=== PATIENT | male | born 1965 | race Caucasian/White ===

== ENCOUNTER 2017-02-04 09:24 | Day surgery (SDC) | payer OTHER ==
--- NOTE | 2017-01-29 16:40 | HISTORY AND PHYSICAL E ---
History and Physical NAME: SAJAN BANKS : 1965 AGE: 51Y ADMITTED: 02/04/2017 ROOM: CHIEF COMPLAINT: Patient for colonoscopy. HISTORY: His previous colonoscopy showed polyps and diverticulosis. The patient does have a history of polyps and diverticulosis. The patient did have a colonoscopy, 05/2016. He is referred to us by the [place] with hemorrhoids, bleeding at times. The patient takes heart medication and blood pressure medications. PAST SURGICAL HISTORY: Right inguinal hernia. MEDICATIONS: 1. He takes Lisinopril. 2. Tylenol. ALLERGIES: No known allergies. SOCIAL HISTORY: He is single, does not smoke, does not drink. FAMILY HISTORY: His sister has MS. Father , brain tumor. His mom of old age. REVIEW OF SYSTEMS: CARDIAC: Hypertension. ENDOCRINE: Negative. GASTROINTESTINAL: History of polyps and diverticulosis. HEAD, EYES, EARS, NOSE, THROAT: Hearing loss and uses eye glasses. ONCOLOGIC/HEMATOLOGIC: History of colon polyps. NEUROLOGIC: Negative. PHYSICAL EXAMINATION: VITAL SIGNS: Blood pressure 130/70, pulse 80, respirations 18, temp is 98. HEAD, EYES, EARS, NOSE, THROAT: Normal. NECK: Supple. CARDIOVASCULAR: Normal. LUNGS: Clear. ABDOMEN: Soft. NEUROLOGIC: Exam negative. PLAN: Colonoscopy. Admit 02/04. DICTATING PHYSICIAN: MARKUS ARREDONDO M.D. [id number] [id number] PHY#: [id number] ID: [id number] JOB#: [id number] ACCT: [id number] cc:, [facility] MARKUS ARREDONDO M.D. >
--- NOTE | 2017-01-29 16:41 | HISTORY AND PHYSICAL E ---
History and Physical NAME: SAJAN BANKS : 1965 AGE: 51Y ADMITTED: 02/04/2017 ROOM: HISTORY: Patient admitted for colonoscopy. Patient does have history of polyps. Patient referred to us by the [place]. SOCIAL HISTORY: Does not smoke. Does not drink. Single. SURGERIES: Right inguinal hernia. REVIEW OF SYSTEMS: CARDIAC: Hypertension. HEENT: Eyeglasses. ENDOCRINE: Negative. GASTROINTESTINAL: Colon screening. ONCOLOGY/HEMATOLOGY: Negative. FAMILY HISTORY: MS sister. Father had brain tumor. Mom of old age. PHYSICAL EXAMINATION: VITAL SIGNS: Blood pressure 130/70, pulse 80, respirations 20, temp is 98. HEENT: Normal. NECK: Supple. LUNGS: Clear. ABDOMEN: Soft. NEUROLOGIC: Negative. CONCLUSION: Colon screening. [facility] MEDICATIONS: Lisinopril for high blood pressure. PLAN: Colon exam. DICTATING PHYSICIAN: MARKUS ARREDONDO M.D. [id number] [id number] PHY#: [id number] ID: [id number] JOB#: [id number] ACCT: [id number] cc:MARKUS ARREDONDO M.D. >
[~2017-02-04 09:24] MED LIST: EPINEPHRINE INJ 1 MG/10 ML DISP.SYRIN ONE; FLUMAZENIL INJ 0.5 MG/5 ML VIAL IV ONE; GLUCAGON,HUMAN RECOMB 1 MG INJ ONE; GLYCOPYRROLATE INJ 0.4 MG/2 ML VIAL ONE; LIDOCAINE 2% JELLY 30 ML TUBE ONE; NALOXONE HCL INJ/PF 0.4 MG/1 ML SDV ONE; ONDANSETRON HCL INJ/PF 4 MG/2 ML SDV ONE
[2017-02-04] MEDS: MIDAZOLAM 2 MG/2 ML INJ ONE ×3 (09:41→09:50)
[2017-02-04] MEDS: FENTANYL CITRATE INJ/PF 100 MCG/2 ML AMPUL ONE ×2 (09:43→09:46)
[2017-02-04 10:55] LABS: ABSOLUTE BASOPHILS # (AUTO) 0.1 10^3/uL (0.0-0.2); ABSOLUTE EOSINOPHILS # (AUTO) 0.1 10^3/uL (0.0-0.6); ABSOLUTE LYMPHOCYTES (AUTO) 1.6 10^3/uL (0.5-4.7); ABSOLUTE MONOCYTES (AUTO) 0.5 10^3/uL (0.1-1.4); ABSOLUTE NEUT (AUTO) 3.5 10^3/uL (1.7-8.2); EOSINOPHILS % (AUTO) 2.1 % (0-6); HEMATOCRIT 42.5 % (37.9-51.0); HEMOGLOBIN 14.9 g/dL (13.5-17.0); HGB HCT DIFFERENCE 2.2; LYMPHOCYTES % (AUTO) 27.6 % (13-45); MEAN CORPUSCULAR HEMOGLOBIN 30.6 pg (27.0-33.4); MEAN CORPUSCULAR HGB CONC 35.1 g/dL (32.0-36.0); MEAN CORPUSCULAR VOLUME 87 fl (80-97); MONOCYTES % (AUTO) 8.1 % (3-13); RED BLOOD COUNT 4.87 10^6/uL (4.35-5.55); SEGMENTED NEUTROPHILS % (AUTO) 61.2 % (42-78); WHITE BLOOD COUNT 5.7 10^3/uL (4.0-10.5)
[2017-02-04 11:14] VITALS: BP 127/78
--- NOTE | 2017-02-04 16:28 | DISCHARGE SUMMARY E ---
Discharge Summary NAME: SAJAN BANKS : 1965 AGE: 51Y ADMITTED: 02/04/2017 DISCHARGED: 02/04/2017 The patient is a 51-year-old male who underwent colon screening today. FINDINGS: Shows diverticulosis sigmoid descending colon, question nonspecific colitis, inverted diverticula (looks like a polyp) in the sigmoid. Difficult intubation of sigmoid descending colon. PAST MEDICAL HISTORY: Patient does have history of: 1. . 2. Hernia repair. 3. Hyperlipidemia. DISCHARGE PLAN: 1. Full liquid diet. 2. Serology for inflammatory bowel disease. 3. CBC, chem profile. 4. Patient to see us in the office in the next few days. DICTATING PHYSICIAN: MARKUS ARREDONDO M.D. [id number] [id number] PHY#: [id number] ID: [id number] JOB#: [id number] ACCT: [id number] cc:MARKUS ARREDONDO M.D. >
--- NOTE | 2017-02-04 16:38 | OPERATIVE REPORT E ---
Operative Report NAME: SAJAN BANKS : 1965 AGE: 51Y DATE OF SURGERY: 02/04/2017 ROOM: PREOPERATIVE DIAGNOSES: 1. DIVERTICULOSIS. 2. HISTORY OF POLYP. POSTOPERATIVE DIAGNOSES: 1. NONSPECIFIC COLITIS, MILD - RECTOSIGMOID. 2. SEVERE DIVERTICULOSIS, SIGMOID COLON. 3. DIFFICULT SIGMOID DESCENDING COLON INTUBATION. SHARP ANGLE BETWEEN SIGMOID AND DESCENDING COLON. SURGEON: MARKUS ARREDONDO M.D. ANESTHESIA: Versed 4, fentanyl 100. TISSUE REMOVED OR ALTERED: None. PROCEDURE: RECTAL EXAM: External hemorrhoids. RECTOSIGMOID: Shows sigmoid diverticulosis. There was one diverticula inverted into the lumen; looks like polyp, but it is inverted colon. No biopsy obtained. SIGMOID DESCENDING COLON: Difficult to intubate, secondary to sharp angle between sigmoid and descending. Consideration for followup colonoscopy in 3 years; this should be done in the OR with anesthesia standby. DESCENDING COLON: Diverticulosis. TRANSVERSE COLON: Normal. ASCENDING COLON: Normal. CECUM: Normal. Scope withdrawn cecum, ascending, transverse, descending, sigmoid, all the way to the rectum. CONCLUSION: 1. SIGMOID DESCENDING COLON DIVERTICULOSIS. 2. EXTERNAL HEMORRHOIDS. 3. NONSPECIFIC COLITIS, MOST LIKELY SECONDARY TO DIVERTICULOSIS. PLAN: 1. We will do lab studies to rule out underlying inflammatory bowel disease. 2. Full liquid diet today. 3. Soft low residual diet for 3 days. 4. Awaiting lab studies. 5. Consideration followup colonoscopy 3 years with anesthesia standby (propofol). DICTATING PHYSICIAN: MARKUS ARREDONDO M.D. [id number] [id number] PHY#: [id number] ID: [id number] JOB#: [id number] ACCT: [id number] cc:MARKUS ARREDONDO M.D. >
== END 2017-02-04 11:00 | disposition home or self-care (01) ==
LOC: END 09:24
PROVIDERS: ATTEND Specialist
PROC: 0DJD8ZZ Inspection of Lower Intestinal Tract, Via Natural or Artificial Opening Endoscopic (ICD-10-PCS; principal; 2017-02-04 10:00)
DX: K57.30 Diverticulosis of large intestine without perforation or abscess without bleeding (principal); K52.9 Noninfective gastroenteritis and colitis, unspecified; K64.4 Residual hemorrhoidal skin tags; Z86.010 Personal history of colon polyps; E78.5 Hyperlipidemia, unspecified; I10 Essential (primary) hypertension; Z79.899 Other long term (current) drug therapy
CPT/HCPCS: 45378; 86256; 36415; 85025; J2250; J3010; J1610; J0171; J2310; J2405; J3490

== ENCOUNTER → 2018-05-14 | Outpatient (CLI) | payer OTHER ==
--- NOTE | 2018-05-14 09:33 | RADIOLOGY REPORT (SQ) ---
EXAM DESCRIPTION: MRI RT UPPER JOINT WITHOUT COMPLETED DATE/TIME: 05/14/2018 8:56 am REASON FOR STUDY: ROTATOR CUFF OF RIGHT SHOULDER, NOT SPECIFIED TRAUMATIC M75.101 UNSP ROTATR-CU FF TEAR/RUPTR OF RIGHT SHOULDER, NOT T COMPARISON: 08/15/2016 MR arthrogram right shoulder TECHNIQUE: Right shoulder images acquired and stored on PACS. Multiplanar imaging to include fat sen sitive sequences such as T1, water sensitive sequences such as FST2/STIR, cartilage sensitive sequenc es such as FSPD/gradient-echo sequences. LIMITATIONS: None. FINDINGS: BONE MARROW AND CORTEX: No marrow signal abnormalities worrisome for aggressive marrow rep lacement process or occult fracture. Subcortical cysts are present in the anterior and posterior asp ect of the right humeral head greater tuberosity. JOINT OR BURSAL EFFUSION: Small glenohumeral joint effusion extending into the subacromial/subdeltoid bursa GLENO-HUMERAL ARTICULATION: Normal articulation. No subluxation. No cystic change. No osteophytes or cartilage loss. ACROMION AND AC JOINT: Type 2 acromion with very bulky acromioclavicular joint hypertrophy and bony spurring. Moderate narrowing subacromial space. Moderate fluid in the subacromial/subdeltoid bursa. ROTATOR CUFF AND INTERVAL: There is a full-thickness tear in the anterior aspect of the supraspinatus tendon, similar compared to 08/15/2016. This is best shown on sagittal image 5 and coronal images 8 -10. No muscle atrophy. Diffuse tendinopathy with partial thickness undersurface tear infraspinatus tendon, similar compared to 2016. No rotator interval tear. No rotator interval thickening to sugge st adhesive capsulitis. LABRUM AND BICEPS LABRAL COMPLEX: Intra-articular long head biceps tendon increased in signal from tendinopathy. There is a small superior labral tear at its attachment, extending anteriorly best adina wn on axial images 7-12. REMAINDER OF LABRUM AND IGHL : No gross tear or paralabral cyst formation. Labral evaluation is less than optimal without joint distention. Small axillary recess of the shoulder joint with thickening of the inferior glenohumeral ligament suggesting some adhesive capsulitis. PERIARTICULAR AND ADJACENT SOFT TISSUES: No masses or abnormal nodes. OTHER: No other significant finding. IMPRESSION: Bulky acromioclavicular joint hypertrophy with narrowing of the subacromial space. Tendinopathy in the distal supra and infraspinatus tendons with small full-thickness tear anterior luna praspinatus tendon Tendinopathy of the long head biceps tendon with small superior labral tear extending anteriorly. TECHNICAL DOCUMENTATION: JOB ID: [id number] [employer]- All Rights Reserved Reading location - IP/workstation name: [email or web address]
== END ==
LOC: RAD 08:02
PROVIDERS: ATTEND Physician Assistant
DX: M75.101 Unspecified rotator cuff tear or rupture of right shoulder, not specified as traumatic (principal)

== ENCOUNTER → 2018-10-16 | Outpatient (CLI) | payer OTHER ==
[2018-10-16 11:32] LABS: ABSOLUTE EOSINOPHILS # (AUTO) 0.1 10^3/uL (0.0-0.6); ABSOLUTE LYMPHOCYTES (AUTO) 2.1 10^3/uL (0.5-4.7); ABSOLUTE MONOCYTES (AUTO) 0.6 10^3/uL (0.1-1.4); ABSOLUTE NEUT (AUTO) 2.6 10^3/uL (1.7-8.2); BASOPHILS % (AUTO) 0.7 % (0-2); EOSINOPHILS % (AUTO) 1.7 % (0-6); HEMATOCRIT 43.6 % (37.9-51.0); HEMOGLOBIN 15.5 g/dL (13.5-17.0); MEAN CORPUSCULAR HEMOGLOBIN 31.3 pg (27.0-33.4); MEAN CORPUSCULAR HGB CONC 35.5 g/dL (32.0-36.0); MEAN CORPUSCULAR VOLUME 88 fl (80-97); MONOCYTES % (AUTO) 11.2 % (3-13); PLATELET COUNT 210 10^3/uL (150-450); RED BLOOD COUNT 4.95 10^6/uL (4.35-5.55); SEGMENTED NEUTROPHILS % (AUTO) 47.4 % (42-78); TOTAL CELLS COUNTED % (AUTO) 100 %; WHITE BLOOD COUNT 5.4 10^3/uL (4.0-10.5)
[2018-10-16 12:15] LABS: ALANINE AMINOTRANSFERASE 39 U/L (21-72); ALBUMIN 4.4 g/dL (3.5-5.0); ALKALINE PHOSPHATASE 68 U/L (38-126); ANION GAP 7 (5-19); ASPARTATE AMINO TRANSFERASE 17 U/L (17-59); BILIRUBIN,DIRECT 0.1 mg/dL (0.0-0.4); BILIRUBIN,TOTAL 0.3 mg/dL (0.2-1.3); BLOOD UREA NITROGEN 12 mg/dL (7-20); CALCIUM 9.6 mg/dL (8.4-10.2); CARBON DIOXIDE 29 mmol/L (22-30); CHLORIDE 104 mmol/L (98-107); GLUCOSE 97 mg/dL (75-110); POTASSIUM 5.2 mmol/L (3.6-5.0); TOTAL PROTEIN 6.8 g/dL (6.3-8.2)
== END ==
LOC: OD 10:57
PROVIDERS: ATTEND Orthopaedic Surgery
DX: I10 Essential (primary) hypertension (principal); Z11.2 Encounter for screening for other bacterial diseases
CPT/HCPCS: 36415; 80053; 85025; 87070

== ENCOUNTER → 2018-12-16 | Outpatient (CLI) | payer OTHER ==
[2018-12-16 11:32] LABS: ABSOLUTE EOSINOPHILS # (AUTO) 0.1 10^3/uL (0.0-0.6); ABSOLUTE LYMPHOCYTES (AUTO) 2.2 10^3/uL (0.5-4.7); ABSOLUTE MONOCYTES (AUTO) 0.5 10^3/uL (0.1-1.4); ABSOLUTE NEUT (AUTO) 3.3 10^3/uL (1.7-8.2); BASOPHILS % (AUTO) 0.6 % (0-2); EOSINOPHILS % (AUTO) 1.9 % (0-6); HEMATOCRIT 46.1 % (37.9-51.0); HEMOGLOBIN 16.5 g/dL (13.5-17.0); LYMPHOCYTES % (AUTO) 36.1 % (13-45); MEAN CORPUSCULAR HEMOGLOBIN 31.3 pg (27.0-33.4); MEAN CORPUSCULAR HGB CONC 35.7 g/dL (32.0-36.0); MEAN CORPUSCULAR VOLUME 88 fl (80-97); MONOCYTES % (AUTO) 8.8 % (3-13); PLATELET COUNT 233 10^3/uL (150-450); RED BLOOD COUNT 5.27 10^6/uL (4.35-5.55); RED CELL DISTRIBUTION WIDTH 13.3 % (11.5-14.0); SEGMENTED NEUTROPHILS % (AUTO) 52.6 % (42-78); TOTAL CELLS COUNTED % (AUTO) 100 %; WHITE BLOOD COUNT 6.2 10^3/uL (4.0-10.5)
[2018-12-16 12:12] LABS: ALANINE AMINOTRANSFERASE 34 U/L (21-72); ALBUMIN 4.8 g/dL (3.5-5.0); ALKALINE PHOSPHATASE 73 U/L (38-126); ANION GAP 8 (5-19); ASPARTATE AMINO TRANSFERASE 18 U/L (17-59); BILIRUBIN,DIRECT 0.1 mg/dL (0.0-0.4); BILIRUBIN,TOTAL 0.4 mg/dL (0.2-1.3); BLOOD UREA NITROGEN 16 mg/dL (7-20); CALCIUM 9.8 mg/dL (8.4-10.2); CARBON DIOXIDE 27 mmol/L (22-30); CHLORIDE 104 mmol/L (98-107); GLUCOSE 95 mg/dL (75-110); POTASSIUM 4.7 mmol/L (3.6-5.0); TOTAL PROTEIN 7.5 g/dL (6.3-8.2)
== END ==
LOC: OD 10:22
PROVIDERS: ATTEND Physician Assistant
DX: Z11.2 Encounter for screening for other bacterial diseases (principal); I10 Essential (primary) hypertension
CPT/HCPCS: 36415; 80053; 85025; 87070

== ENCOUNTER → 2019-02-11 | Outpatient (CLI) | payer OTHER ==
[2019-02-11 11:02] LABS: ABSOLUTE EOSINOPHILS # (AUTO) 0.1 10^3/uL (0.0-0.6); ABSOLUTE LYMPHOCYTES (AUTO) 1.9 10^3/uL (0.5-4.7); ABSOLUTE MONOCYTES (AUTO) 0.6 10^3/uL (0.1-1.4); ABSOLUTE NEUT (AUTO) 4.7 10^3/uL (1.7-8.2); BASOPHILS % (AUTO) 0.5 % (0-2); HEMATOCRIT 42.6 % (37.9-51.0); HEMOGLOBIN 14.8 g/dL (13.5-17.0); LYMPHOCYTES % (AUTO) 25.9 % (13-45); MEAN CORPUSCULAR HEMOGLOBIN 29.4 pg (27.0-33.4); MEAN CORPUSCULAR HGB CONC 34.6 g/dL (32.0-36.0); MEAN CORPUSCULAR VOLUME 85 fl (80-97); MONOCYTES % (AUTO) 8.6 % (3-13); PLATELET COUNT 282 10^3/uL (150-450); RED BLOOD COUNT 5.02 10^6/uL (4.35-5.55); RED CELL DISTRIBUTION WIDTH 12.5 % (11.5-14.0); TOTAL CELLS COUNTED % (AUTO) 100 %; WHITE BLOOD COUNT 7.3 10^3/uL (4.0-10.5)
[2019-02-11 11:24] LABS: ALANINE AMINOTRANSFERASE 31 U/L (21-72); ALBUMIN 4.4 g/dL (3.5-5.0); ALKALINE PHOSPHATASE 105 U/L (38-126); ANION GAP 12 (5-19); ASPARTATE AMINO TRANSFERASE 14 U/L (17-59); BILIRUBIN,DIRECT 0.3 mg/dL (0.0-0.4); BILIRUBIN,TOTAL 0.5 mg/dL (0.2-1.3); BLOOD UREA NITROGEN 13 mg/dL (7-20); CALCIUM 9.1 mg/dL (8.4-10.2); CARBON DIOXIDE 27 mmol/L (22-30); CHLORIDE 103 mmol/L (98-107); GLUCOSE 96 mg/dL (75-110); POTASSIUM 5.1 mmol/L (3.6-5.0); SODIUM 142.1 mmol/L (137-145)
== END ==
LOC: OD 10:11
PROVIDERS: ATTEND Physician Assistant
DX: Z11.2 Encounter for screening for other bacterial diseases (principal); I10 Essential (primary) hypertension
CPT/HCPCS: 36415; 80053; 85025; 87070